=== PATIENT | female | born 1940 | race Caucasian/White ===

== ENCOUNTER 2018-02-05 12:21 | Outpatient (CLI) | payer MEDICARE, OTHER ==
--- NOTE | 2018-02-05 17:04 | MRI Report ---
EXAM: MRI LUMBAR SPINE WITHOUT CONTRAST EXAM DATE: 02/05/2018 01:38 PM. CLINICAL HISTORY: Lumbar spinal stenosis. Scoliosis. Chronic back pain. COMPARISON: None. TECHNIQUE: Multiplanar, multisequence T1-weighted and fluid-sensitive sequences of the lumbar spine f rom T12 to S1 without contrast. Other: None. FINDINGS: Spinal Cord: The conus terminates at L1-L2. The conus medullaris and cauda equina are unremarkable. Alignment: Moderate levoconvex scoliosis centered at the L2-L3 level. The Simms angle from T12 to L4 i s approximately 55 degrees in the supine position. There is right lateral listhesis at L1-L2 by appro ximately 11 mm. There is left lateral listhesis at L3-L4 by approximately 11 mm. There is left latera l listhesis at L4-L5 by approximately 9 mm. There is right lateral listhesis at T12-L1 by approximate ly 5 mm. Bone Marrow: Five did-zei-xiyjnwa lumbar vertebral bodies are assumed. No gross fractures or bone les ions. No bone marrow edema. Disk Levels/Facets: L5-S1: Left-sided degenerative endplate changes. Severe left-sided and moderate right-sided disk spac e narrowing. Small posterior central, left paracentral, and left foraminal disk protrusion/osteophyte complex. Severe left and mild right facet arthropathy. Moderate to severe left foraminal stenosis. L4-L5: Mild to moderate disk space narrowing. Small left foraminal disk protrusion. Moderate to sever e ligamentum flavum thickening. Severe facet arthropathy. Mild to moderate canal stenosis. Mild to mo derate right and moderate left foraminal stenoses. L3-L4: Right-sided degenerative endplate changes. Moderate to severe right-sided and mild left-sided disk space narrowing. Small posterior disk bulge. Small right lateral disk protrusion. Severe right a nd left facet arthropathy. Moderate to severe right and mild left foraminal stenoses. L2-L3: Right-sided degenerative endplate changes. Severe right-sided disk space narrowing. Small to m oderate-sized right lateral osteophytes. Moderate to severe ligamentum flavum thickening. Moderate to severe right facet arthropathy. Mild to moderate canal stenosis. Mild right subarticular zone stenos is. Moderate right foraminal stenosis. L1-L2: Severe right-sided and moderate left-sided disk space narrowing. Moderate to severe right face t arthropathy. Moderate right subarticular zone stenosis. Severe right foraminal stenosis. T12-L1: Moderate disk space narrowing. Mild to moderate right facet arthropathy. Mild right foraminal stenosis. T11-T12: Mild to moderate right and moderate left facet arthropathy. Moderate left facet joint effusi on. Mild canal stenosis. Moderate left foraminal stenosis. T10-T11: Moderate to severe left-sided disk space narrowing. Moderate to severe left facet arthropath y. Moderate to severe left foraminal stenosis. Musculature: Moderate fatty atrophy at the right posterior paraspinal muscles. Other: Incidentally, there is a 1.6 cm stone within the gallbladder. The endometrial thickness is [place] roximately 1.1 cm. IMPRESSION: 1. Moderate levoconvex scoliosis centered at the L2-L3 level. Right lateral listhesis at L1-L2 and T1 2-L1. Left lateral listhesis at L3-L4 and L4-L5. 2. Multilevel degenerative disk changes, osteophytosis, and facet arthropathy. There are varying degr ees of stenoses. Please see above for level by level details. 3. Incidental finding of thickened endometrium which may represent hyperplasia or neoplasia. Consider further evaluation with endometrial biopsy if warranted. 4. Incidental finding of a 1.6 cm gallstone. Comment: The following findings are so common in adults without low back pain that while we report th eir presence, they must be interpreted with caution and in the context of the clinical situation. (Re kayce Harrison et al, Spine 2001) Prevalence of findings in patients without low back pain: Disk degeneration (any evidence): 92% Disk desiccation/T2 signal loss: 83% Disk height loss: 56% Disk bulge: 64% Disk protrusion: 32% Annular tear/high intensity zone: 38% [facility] Referring Provider Line: [phone] SITE ID: [id number]
== END 2018-02-05 12:22 | disposition home or self-care (01) ==
LOC: DI 12:21
PROVIDERS: ATTEND Internal Medicine Rheumatology
DX: M51.26 Other intervertebral disc displacement, lumbar region (principal); M47.896 Other spondylosis, lumbar region; M51.36 Other intervertebral disc degeneration, lumbar region; M47.894 Other spondylosis, thoracic region; M43.16 Spondylolisthesis, lumbar region; M41.86 Other forms of scoliosis, lumbar region; M51.27 Other intervertebral disc displacement, lumbosacral region
CPT/HCPCS: 72148

== ENCOUNTER 2018-12-01 19:30 | Outpatient (CLI) | payer MEDICARE, OTHER | END 2018-12-01 19:31 | disposition home or self-care (01) | LOC: DI 19:30 | PROVIDERS: ATTEND Family Medicine | DX: Z53.9 Procedure and treatment not carried out, unspecified reason (principal) ==

== ENCOUNTER 2018-12-09 08:06 | Outpatient (CLI) | payer MEDICARE, OTHER ==
[2018-12-09 10:19] LABS: BASOPHILS % (AUTO) 0.2 %; EOSINOPHILS # (AUTO) 0.2 10^3/uL (0.0-0.7); EOSINOPHILS % (AUTO) 1.5 %; HGB - HEMOGLOBIN 14.8 g/dL (12.0-16.0); LYMPHOCYTES # (AUTO) 0.3 10^3/uL (1.5-3.5); LYMPHOCYTES % (AUTO) 2.4 %; MEAN CORPUSCULAR HEMOGLOBIN 33.2 pg (27.0-31.0); MEAN CORPUSCULAR HGB CONC 33.3 g/dL (32.0-36.0); MEAN CORPUSCULAR VOLUME 99.6 fL (81.0-99.0); MEAN PLATELET VOLUME 8.5 fL (7.9-10.8); MONOCYTES # (AUTO) 0.2 10^3/uL (0.0-1.0); MONOCYTES % (AUTO) 1.9 %; NEUTROPHILS # (AUTO) 12.1 10^3/uL (1.5-6.6); PLT - PLATELET COUNT 359 10^3/uL (130-450); RED BLOOD COUNT 4.46 10^6/uL (4.20-5.40); RED CELL DISTRIBUTION WIDTH 13.4 % (12.0-15.0); WHITE BLOOD COUNT 12.9 x10^3/uL (4.8-10.8)
[2018-12-09 10:51] LABS: ALBUMIN 3.6 g/dL (3.2-5.5); ALBUMIN/GLOBULIN RATIO 1.3 (1.0-2.2); ALKALINE PHOSPHATASE 54 IU/L (42-121); ALT ALANINE AMINOTRANSFERASE 29 IU/L (10-60); AST ASPARTATE AMINOTRANSFERASE 34 IU/L (10-42); BILIRUBIN,TOTAL 0.3 mg/dL (0.2-1.0); BUN - BLOOD UREA NITROGEN 16 mg/dL (6-20); CALCIUM 8.2 mg/dL (8.5-10.3); CARBON DIOXIDE - CO2 29 mmol/L (21-32); CHLORIDE 106 mmol/L (101-111); CHOL/HDL RATIO 2.4 (<4.4); CHOLESTEROL 143 mg/dL; CREATININE 0.6 mg/dL (0.4-1.0); GFR - MDRD 97 (>89); GLUCOSE 117 mg/dL (70-100); HDL CHOLESTEROL 60 mg/dL; LDL CHOLESTEROL,CALCULATED 71 mg/dL; LDL/HDL RATIO 1.2 (<4.4); SODIUM 142 mmol/L (135-145); TOTAL PROTEIN 6.3 g/dL (6.7-8.2); VLDL CHOLESTEROL 12 mg/dL
== END 2018-12-09 08:07 | disposition home or self-care (01) ==
LOC: LAB.F 08:06
PROVIDERS: ATTEND Physician Assistant
DX: M89.9 Disorder of bone, unspecified (principal); Z79.899 Other long term (current) drug therapy
CPT/HCPCS: 36415; 80053; 80061; 82306; 83721; 85025

== ENCOUNTER 2018-12-10 14:26 | Outpatient (CLI) | payer MEDICARE, OTHER ==
--- NOTE | 2018-12-10 16:27 | MRI Report ---
Reason: CONFUSION Procedure Date: 12/10/2018 Accession Number: [id number] / [id number] Procedure: MRI - Brain W/O CPT Code: FULL RESULT: EXAM: MRI BRAIN WITHOUT CONTRAST EXAM DATE: 12/10/2018 03:02 PM. CLINICAL HISTORY: 78-year-old female. CONFUSION. COMPARISON: None. TECHNIQUE: Multiplanar, multisequence T1-weighted and fluid-sensitive MR sequences of the brain were performed. Sequences optimized for routine evaluation. Other: None. IV Contrast: None. FINDINGS: Brain Volume: Normal for age. Parenchyma/Dura: No mass, acute infarct or hemorrhage. No white matter lesions identified. No parenchymal foci susceptibility artifact. Ventricles/Cisterns: No hydrocephalus. No abnormal extra-axial fluid collection or hemorrhage. Orbits: Status post bilateral lens replacement surgery. The visualized orbits are otherwise unremarkable. Sella Turcica: The pituitary gland, cavernous sinuses, suprasellar cistern and optic chiasm are unremarkable. IAC: Symmetric and unremarkable. Vasculature: Normal signal flow void is seen in the major arterial structures at the skull base. Sinuses: Moderate mucosal thickening right maxillary sinus. Mild mucosal thickening left maxillary sinus. The remaining paranasal sinuses are clear. The mastoid air cells are clear. Bones: No focal pathologic appearing marrow signal changes. 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 IMPRESSION: 1. No MRI evidence of acute intracranial abnormality. Specifically, no evidence of acute or subacute infarct, acute intracranial hemorrhage, mass, midline shift, or hydrocephalus. 2. Moderate mucosal thickening right maxillary sinus. Mild mucosal thickening left maxillary sinus. Correlate clinically for sinusitis. [facility]
--- NOTE | 2018-12-11 13:01 | Ultrasound Report ---
Reason: CONFUSION Procedure Date: 12/10/2018 Accession Number: [id number] / [id number] Procedure: US - Carotid Doppler Complete CPT Code: FULL RESULT: EXAM: BILATERAL CAROTID AND VERTEBRAL ARTERY DUPLEX DOPPLER ULTRASOUND: EXAM DATE: 12/10/2018 04:35 PM CLINICAL HISTORY: Confusion. COMPARISON: None. TECHNIQUE: Grayscale imaging, color Doppler, and duplex spectral Doppler were used to evaluate the carotid and vertebral arteries bilaterally. Static images were obtained. FINDINGS: No significant plaque is identified in the right or left common or internal carotid arteries. Normal antegrade flow is present in bilateral vertebral arteries. VELOCITIES (cm/sec): RIGHT: CCA mid: PSV 78 cm/sec CCA dist: PSV 72 cm/sec ICA prox: PSV 73 cm/sec, EDV 23 cm/sec ICA mid: PSV 137 cm/sec, EDV 42 cm/sec ICA dist: PSV 137 cm/sec, EDV 30 cm/sec ECA: PSV 56 cm/sec Vert: PSV 74 cm/sec ICA/CCA: 1.76 LEFT: CCA mid: PSV 85 cm/sec CCA dist: PSV 77 cm/sec ICA prox: PSV 69 cm/sec, EDV 23 cm/sec ICA mid: PSV 204 cm/sec, EDV 76 cm/sec ICA dist: PSV 69 cm/sec, EDV 14 cm/sec ECA: PSV 80 cm/sec Vert: PSV 99 cm/sec ICA/CCA: 2.40 ICA diameter stenosis: Right: <50% by velocity and <70% by NASCET criteria. Left: 50-69% by velocity and <70% by NASCET criteria. IMPRESSION: 1. No significant bilateral carotid artery plaquing. 2. In the right carotid artery there are no elevated carotid artery velocities to suggest hemodynamically significant stenosis. 3. In the left carotid artery there are no elevated carotid artery velocities to suggest hemodynamically significant stenosis. 4. Normal antegrade flow is present in bilateral vertebral arteries. General Recommendations: Stenosis =50% ICA - Follow-up ultrasound 6-12 months Stenosis <50% ICA - High Risk Patient with plaque - Follow-up ultrasound 1-2 years Normal Study but High Risk Patient - Follow-up ultrasound 3-5 years Management recommendations and diagnostic criteria are based on current IAC endorsed standards in Carotid Artery Stenosis: Grayscale and Doppler Ultrasound Diagnosis. Validated velocity measurements with angiographic measurements and velocity criteria are extrapolated from diameter data as defined by the Society of Radiologists in Ultrasound Consensus Conference Radiology 2003; 229;340-346. [facility]
== END 2018-12-10 14:27 | disposition home or self-care (01) ==
LOC: DI 14:26
PROVIDERS: ATTEND Family Medicine
DX: R41.0 Disorientation, unspecified (principal); J34.89 Other specified disorders of nose and nasal sinuses
CPT/HCPCS: 70551; 93880

== ENCOUNTER 2018-12-14 10:59 | Outpatient (CLI) | payer MEDICARE, OTHER ==
[2018-12-14 19:00] LABS: CREATININE 0.5 mg/dL (0.4-1.0)
[2018-12-14 19:32] LABS: CALCIUM 8.4 mg/dL (8.5-10.3)
== END 2018-12-14 23:59 | disposition home or self-care (01) ==
LOC: LAB.WCP 10:59
PROVIDERS: ATTEND Physician Assistant Medical
DX: E87.6 Hypokalemia (principal)
CPT/HCPCS: 36415; 80048

== ENCOUNTER → 2019-08-26 | Outpatient (CLI) | payer MEDICARE, OTHER ==
--- NOTE | 2019-08-26 16:55 | XRAY Report ---
Reason: SACRAL BACK PAIN Procedure Date: 08/26/2019 Accession Number: [id number] / [id number] Procedure: WCP - Sacrum/Coccyx CPT Code: FULL RESULT: EXAM: SACRUM AND COCCYX RADIOGRAPHY EXAM DATE: 08/26/2019 03:46 PM. HISTORY: Lumbosacral pain. COMPARISONS: None. TECHNIQUE: 2 views. FINDINGS: Alignment: Normal. The sacrum and coccyx are normally aligned. Bones: Partial evaluation of lower lumbar spine with marked levoconvex lumbar scoliosis. No focal bony abnormality. No evidence of sacral insufficiency fracture. Joints: Normal for age sacroiliac and hip joints. Soft Tissues: Unremarkable. IMPRESSION: 1. Severe levoconvex lumbar scoliosis. 2. Normal sacroiliac and hip joints. 3. No evidence of pelvic fracture. [facility]
== END ==
LOC: DI.WCP 08:00 → EDSTATUS 12:28
PROVIDERS: ATTEND Physician Assistant Medical
DX: M41.9 Scoliosis, unspecified (principal)
CPT/HCPCS: 72220

== ENCOUNTER 2020-01-04 09:22 | Outpatient (CLI) | payer MEDICARE, OTHER ==
[2020-01-05 20:35] VITALS: BP 178/71
--- NOTE | 2020-01-05 20:35 | SLEEP CARE CONSULTATION ---
Information from patient questionnaire entered by Yarelis Ochoa. I have reviewed and concur with the information entered by Yarelis Ochoa. This document represents the service I personally performed and the decisions made by me, Efren Lynch MD, [place]. History of Present Illness Reason for Visit: New patient Chief Complaint: reports: Insomnia, Unrefreshed sleep, Excessive daytime sleepiness, Fatigue Duration of Symptoms: 30 years at least Usual bedtime: 2200 Time it takes to fall asleep: 15 mins with sleep meds, hours without Snores at night: No (not that I know of) Observed to quit breathing while asleep: No Sleeps alone due to snoring: No Number of times waking at night: 2+ Reasons for waking at night: reports: Pain (sometimes), Bathroom Toss, Turn, or Twitch while sleeping: No Recalls having dreams: Yes Usually gets out of bed at: 0600 Feels refreshed in the morning: No Morning headache: Yes Sleepy or fatigued during the day: Yes Ever fallen asleep while driving: No Takes day naps: No Dreams during day naps: No Prior sleep studies: No Additional HPI information: I had the pleasure of seeing Ms. Goetz today regarding the possibility of her having a sleep disorder. As you know, she is a 79 year old lady who complains of insomnia for 30 years. She has been taking zolpidem 10 mg every night for at least 20 years. She also takes methadone 240 mg for pain. The patient tells me that she normally goes to bed around 10 pm, and it takes her approximately 15 minutes to fall asleep. She has been told that she snores loudly and irregularly at night. She has never been observed to stop breathing in her sleep. However, she sleeps alone (her 3 months ago). She can recall waking up on the average of 2+ times during the night. Most of the time she wakes up because of having to use the bathroom. She has never awakened occasionally because of her own snoring, choking, or having to gasp for air. There is not a lot of tossing and turning in her sleep. No somniloquy (sleep talking) or somnambulism (sleep walking). Generally she can recall having dreams. In the morning she usually gets up out of the bed around 6 a.m. not feeling refreshed nor rested. She usually has a morning headache. During the day she complains of feeling sleepy and fatigued. However, her score on [place] Sleepiness Scale is 0 out of 24. She has never fallen asleep while driving nor has had any accident due to sleepiness. She usually does not take naps during the day. Upon falling asleep during the day she denies having vivid dreams. She has never had sleep paralysis, experienced cataplexy or symptoms of restless leg syndrome. She denies having impaired concentration during the day. Subjective Initial [place] Sleepiness Scale score: 0 Past Medical History Past Medical History: reports: Hypertension, Arthritis, Fibromyalgia, Anxiety, Depression, GERD, Other (IBS, migrains, bone disorder, chronic fatigue syndrome,chronic itching on spinal stenosis,scoliosis, degenerative disc disease) Social History The patient's occupation is retired. Patient is and lives in [place]. Have you smoked in the past 12 months: No Cigarettes per day (20/pack): 20 Years of smokin (8-10 years) Quit date: 1975 Smoking Pack Years: 9.0 Alcohol use: No Caffeine use: No Allergies and Home Medications Drug allergies reviewed: Yes Home medication list reviewed: Yes Allergy and home medication list: Meds: Zoloft, Buspar, atenolol, methadone, Vicodin, Ritalin, methyline ER, Imitrex, zolpidem, Carafate, hydroxyzine Allergies: sulfa and epinephrine Review of Systems Weight loss over past 5 years: 25 Cardiovascular: reports: high blood pressure, leg or foot swelling Respiratory: denies: shortness of breath, wheeze, sputum production, chronic cough, other Gastrointestinal: reports: heartburn, difficulty swallowing, abdominal pain Urinary: reports: frequency Neurological: reports: headaches Psychiatric: reports: anxiety, depression Ear/Nose/Throat: reports: nasal congestion, sinus problems, dry mouth/throat, tonsillectomy, wisdom teeth removed Endocrine: reports: sluggishness, excessive thirst Musculoskeletal: reports: joint pain, neck pain, back pain, muscle pain or cramping, mobility problems Immunologic: reports: sneezing (runny nose), itching Physical Exam Vital signs obtained and entered by: Dr. Conner Blood Pressure: 178/71 Cuff size: regular Heart Rate: 70 O2 Saturation: 94 Height: 5 ft 1 in Weight: 96 lb Body Mass Index: 18.1 BMI Classification: Underweight Neck circumference: 13 Mood/affect: normal HEENT: No craniofacial malformation Nostrils: patent to airflow Turbinates: normal Septum: midline Mouth and throat: narrow oropharynx Soft palate: long Hard palate: normal Uvula: normal Uvula visualization: 50% Mallampati Class II Tongue: normal in size Tonsils: absent bilaterally Chin and jaw: normal size and position Neck: normal w/o lymphadenopathy or thyromegaly Heart: regular rate and rhythm Lungs: clear bilaterally Abdomen: soft, non-tender Extremities: no edema or clubbing Neurologic: intact, no focal deficits Impression and Plan IMPRESSION: 1. Possible central sleep apnea, from opiate pain medications. The patient is on high dose methadone, especially considering her small size. Respiratory depressant effect of the medication could cause central sleep apnea. Narrow oropharynx, on the other hand, could cause obstructive sleep apnea-hypopnea. I recommend proceeding to an in-laboratory polysomnography for further evaluation. I informed the patient of what the sleep studies involve and after some discussion, she agreed to proceed. 2. Insomnia, sleep aid dependency. The patient actually has very good sleep schedule and no insomnia but she has been taking Ambien for many decades and does not know what would happen if she does not take it. I advise her to consider weaning herself off the medication because most likely she does not need it. Although, she may want to awhile because her just three months ago. Plan: 1. Schedule an in-laboratory polysomnography. 2. Avoid long distance driving or when feeling sleepy. 3. Avoid alcohol, sedative and muscle relaxant around bedtime. 4. Attempt to lose weight. 5. Return in 1 to 2 weeks after the study to discuss results and initiate therapy I spent 100% of this visit face to face with the patient with greater than 50% of this was spent time counseling the patient and coordination of care.
== END 2020-01-04 09:23 | disposition home or self-care (01) ==
LOC: SC 09:22
PROVIDERS: ATTEND Internal Medicine Pulmonary Disease
DX: G47.00 Insomnia, unspecified (principal); G47.8 Other sleep disorders; G47.10 Hypersomnia, unspecified; R53.83 Other fatigue
CPT/HCPCS: 99203; G0463; 99212

== ENCOUNTER 2020-01-26 19:33 | Outpatient (CLI) | payer MEDICARE, OTHER | END 2020-01-26 19:34 | disposition home or self-care (01) | LOC: SC 19:33 | PROVIDERS: ATTEND Internal Medicine Pulmonary Disease | DX: G47.00 Insomnia, unspecified (principal); R53.83 Other fatigue; I10 Essential (primary) hypertension; F32.9 Major depressive disorder, single episode, unspecified; Z79.891 Long term (current) use of opiate analgesic | CPT/HCPCS: 95810 ==

== ENCOUNTER 2020-04-13 10:26 | Outpatient (CLI) | payer MEDICARE, OTHER ==
--- NOTE | 2020-04-13 10:08 | SLEEP CARE CONSULTATION ---
Information from patient questionnaire entered by Ligia Nunez. I have reviewed and concur with the information entered by Ligia Nunez. This document represents the service I personally performed and the decisions made by me, Barbara Sylvester, RN, MSN, [employer]. History of Present Illness Service Date and Time: 04/13/2020929 Initial [place] Sleepiness Scale score: 0 (in 2019) Additional HPI information: YOANA DENISE returns for telemed visit to discuss results of the recently performed polysomnography. I explained the pathophysiology behind obstructive sleep apnea. Patient does not have sleep apnea and was advised how weight gain could increase the risk of developing sleep apnea in the future. Patient has mild snoring. Snoring can be reduced by weight loss but patient at normal weight. Snoring can also be treated with an oral appliance from a dentist. Advised to check insurance coverage. In addition, an ENT evaluation can be do to see if other treatment is indicated. Patient not interested in any treatment at this time. Patient counseled not drink alcohol less than 4 hours before bedtime as it can increase snoring and apnea. I especially stressed not using alcohol as she uses Ambien to sleep and informed of risks of combining. She states she is aware. She states the Ambien assists her to sleep through the night that before was disrupted by back pain. She takes opiates for her pain and also was advised not to combine with alcohol or Ambien and patient stated she is aware. Patient was cautioned about risks of drowsy driving if fatigue or sleepiness symptoms. Patient denies drowsy driving but has not done any while sheltering in place due to Covid19 pandemic. Sleep Study - Results Polysomnography/Home Sleep Study results: The quality of the study is good. The patient had normal sleep efficiency. The sleep architecture was abnormal for sleep fragmentation and reduced amount of time or hypoxia (clarisse oxygen saturation of 88% and only 0.6% to the total sleep time was spent with oxygen saturation below 90%). The patient slept mostly supine (supine AHI = 1.8; non-supine = 2.19). Snore was light in intensity. There was no significant periodic leg movement of sleep. Cardiac rhythm was normal sinus rhythm without significant arrhythmia. No abnormal behavior (parasomnia) observed during the night. Physical Exam Height: 5 ft Weight: 98 lb (home weight - stable ) Body Mass Index: 19.1 BMI Classification: Healthy weight Impression and Plan 1.Snoring but no significant sleep disordered breathing. Patient advised that often weight loss will reduce snoring but patient at normal weight. I reviewed other treatment options such as an oral appliance and ENT consult. However, her mild snoring is not disruptive to her sleep that she is aware of so it does not need to be treated at this time. 2.Insomnia, that patient feels is due to her back pain and is treated by her rheumotologist. She feels it is managed as best as can be with current m edication regime. She was cautioned of risk of respiratory depression and by combining Ambien, opiates or alcohol. She states she aware and does not combine. She has been on current medications for years. If further insomnia concerns, she is advised to contact this office for follow up with sleep diaries for further evaluation. 1. Follow up as needed. Visit Type: Telehealth Phone (to reduce risk of Covid 19 exposure) Patient Location: assisted living Location of Provider: Home Patient agrees and consents to this telehealth visit type: Yes Patient agrees to have their insurance billed: Yes Time Spent with Patient (minutes): 10 Provider Statement: I spent 100% of the Telehealth Phone Call with the patient with greater than 50% spent counseling the patient and coordination of care.
== END 2020-04-13 10:27 | disposition home or self-care (01) ==
LOC: SC 10:26
PROVIDERS: ATTEND Nurse Practitioner Family
DX: R06.83 Snoring (principal); G47.00 Insomnia, unspecified

== ENCOUNTER 2020-09-13 17:39 | Outpatient (CLI) | payer MEDICARE, OTHER ==
--- NOTE | 2020-09-13 18:42 | XRAY Report ---
PROCEDURE: Chest 2 View X-Ray INDICATIONS: COUGH TECHNIQUE: 2 view(s) of the chest. COMPARISON: None. FINDINGS: Surgical changes and devices: Surgical clips are noted in right side of abdomen and epigastric region suggest clinical correlation.. Lungs and pleura: No pleural effusions or pneumothorax. Lungs are clear. Mediastinum: Mediastinal contours are normal. Heart size is normal. Bones and chest wall: No suspicious bony abnormalities. Soft tissues appear unremarkable. S-shaped scoliosis of thoracolumbar spine is seen. IMPRESSION: No acute cardiopulmonary pathology. Scoliosis of spine. Reviewed by: Chris Contreras MD on 09/13/2020 5:40 PM [facility] Approved by: Chris Contreras MD on 09/13/2020 5:40 PM [facility] Station ID: [id number]
== END 2020-09-13 17:40 | disposition home or self-care (01) ==
LOC: DI 17:39
PROVIDERS: ATTEND Family Medicine
DX: R05 Cough (principal)
CPT/HCPCS: 71046

== ENCOUNTER 2022-06-25 15:14 | Observation (INO) | payer MEDICARE, OTHER ==
--- NOTE | 2022-06-25 15:23 | ED Physician Documentation ---
PD HPI FOCAL NEURO - Stated complaint Stated Complaint: STOKE SYMPTOMS - History obtained from History obtained from: Patient - Additional information Additional information: She woke up yesterday morning around 0600, had gone to bed the night before on Friday around 9 PM. When she woke up yesterday morning she had slurred speech and right facial weakness. She did not think much of it and ended up going to the dentist yesterday for some dental work. Symptoms were persistent today so she called 911 for evaluation. She denies headache or chest pain. No heart or lung problems. Review of Systems Ten Systems: 10 systems reviewed and negative Cardiac: reports: Reviewed and negative Respiratory: reports: Reviewed and negative PD PAST MEDICAL HISTORY - Past Medical History Psych: Depression, Anxiety Musculoskeletal: Osteoarthritis - Present Medications Home Medications: Ambulatory Orders Medication Instructions Recorded Confirmed Cyclobenzaprine [Flexeril] 10 mg PO TID PRN 06/30/20 06/30/20 Gabapentin 100 mg PO TID 06/30/20 06/30/20 Methadone HCl 240 mg PO DAILY 06/30/20 06/30/20 Methylphenidate HCl [Methylin] 20 mg PO DAILY 06/30/20 06/30/20 Methylphenidate [Ritalin] 5 mg PO DAILY 06/30/20 06/30/20 SUMAtriptan [Imitrex] 25 mg PO ONCE PRN 06/30/20 06/30/20 Salsalate [Disalcid] 500 mg PO DAILY PRN 06/30/20 06/30/20 Sertraline HCl [Zoloft] 200 mg PO DAILY 06/30/20 06/30/20 Sucralfate [Carafate] 1 gm PO DAILY 06/30/20 06/30/20 Zolpidem Tartrate [Ambien] 10 mg PO QPM 06/30/20 06/30/20 atenoloL [Atenolol] 100 mg PO DAILY 06/30/20 06/30/20 busPIRone [Buspar] 25 mg PO DAILY 06/30/20 06/30/20 predniSONE [Prednisone] 5 mg PO DAILY 06/30/20 06/30/20 - Allergies Allergies/Adverse Reactions: Allergies Allergy/AdvReac Type Severity Reaction Status Date / Time Sulfa (Sulfonamide Allergy Hives Verified 06/25/22 15:20 Antibiotics) - Social History Does the pt smoke?: No Does the pt drink ETOH?: No PD ED PE NORMAL - Vitals Vital signs reviewed: Yes - General General: Alert and oriented X 3, Other (She is small stature and quite thin with a frequent bronchitic cough that she says is from her allergies.) - HEENT HEENT: PERRL, EOMI, Other (Left-sided tongue deviation and mild right facial droop) - Neck Neck: Supple, no meningeal sign, No bony TTP - Cardiac Cardiac: RRR, No murmur - Respiratory Respiratory: No respiratory distress, Other (Frequent coughing and diminished at the bases) - Abdomen Abdomen: Soft, Non tender - Back Back: No CVA TTP, No spinal TTP - Derm Derm: Normal color, Warm and dry - Extremities Extremities: No edema, No calf tenderness / cord - Neuro Neuro: Alert and oriented X 3, No motor deficit, No sensory deficit, Normal speech Eye Opening: Spontaneous Motor: Obeys Commands Verbal: Oriented GCS Score: 15 NIHSS - Time Time: 15:20 - Level of Consciousness Level of consciousness: (0) Alert, Keenly responsive LOC Questions: (0) Answers both Q's correct LOC Commands: (0) Performs both correctly - Gaze Best Gaze: (0) Normal - Visual Visual: (0) No loss - Facial Palsy Facial Palsy: (1) Minor paralysis - Motor Arms (both separate) Motor Arm (right): (0) No drift Motor Arm (left): (0) No drift - Motor Legs (both separate) Motor Leg (right): (0) No drift (I was unable to get her to lift either leg off the bed due to arthritic pain related to hip osteoarthritis but strength in the ankles is excellent and symmetric) Motor Leg (left): (0) No drift - Limb Ataxia Limb Ataxia: (0) Absent - Sensory Sensory: (0) Normal - Best Language Best Language: (0) No aphasia - Dysarthria Dysarthria: (0) Normal - Extinction and Inattention (formally neg Extinction and inattention: (0) No abnormality - Total Score/Results Total Score/Result: 1 Results - Vitals Vitals: Vital Signs - 24 hr 06/25/22 06/25/22 15:20 15:23 Temperature 36.5 C 36.5 C Heart Rate 84 84 Respiratory 16 16 Rate Blood Pressure 140/70 H 140/70 H O2 Saturation 93 93 Oxygen O2 Source Room air - Labs Labs: Laboratory Tests 06/25/22 06/25/22 06/25/22 15:29 15:29 15:29 WBC 15.0 H RBC 3.81 L Hgb 12.5 Hct 38.7 MCV 101.6 H MCH 32.8 H MCHC 32.3 RDW 13.9 Plt Count 320 MPV 9.8 Neut # (Auto) 13.3 H Lymph # (Auto) 0.8 L [place] # (Auto) 0.7 Eos # (Auto) 0.0 Baso # (Auto) 0.0 Absolute Nucleated RBC 0.00 Nucleated RBC % 0.0 PT 13.1 H INR 1.2 Sodium 137 Potassium 4.2 Chloride 103 Carbon Dioxide 26 Anion Gap 8.0 BUN 15 Creatinine 0.4 Estimated GFR (MDRD) 154 Glucose 146 H Calcium 8.1 L Total Bilirubin 0.3 AST 29 ALT 21 Alkaline Phosphatase 114 Total Protein 6.0 L Albumin 2.7 L Globulin 3.3 Albumin/Globulin Ratio 0.8 L PD MEDICAL DECISION MAKING - ED course ED course: 82-year-old woman presents with stroke symptoms. She is well out of the window for tPA consideration. CTA of the head and neck show no evidence of stroke or occlusion. Note that she has significant sinus disease. I discussed this with her, it is not acute. She was administered aspirin and I spoke with Dr. Branch for admission at 5 PM. Departure - Departure Disposition: ED Place in Observation Clinical Impression: Stroke-like symptoms Condition: Stable Discharge Date/Time: 06/25/22 18:04
[2022-06-25 15:40] LABS: BASOPHILS % (AUTO) 0.3 %; EOSINOPHILS % (AUTO) 0.2 %; HCT - HEMATOCRIT 38.7 % (37.0-47.0); HGB - HEMOGLOBIN 12.5 g/dL (12.0-16.0); LYMPHOCYTES # (AUTO) 0.8 10^3/uL (1.5-3.5); LYMPHOCYTES % (AUTO) 5.3 %; MEAN CORPUSCULAR HEMOGLOBIN 32.8 pg (27.0-31.0); MEAN CORPUSCULAR HGB CONC 32.3 g/dL (32.0-36.0); MEAN CORPUSCULAR VOLUME 101.6 fL (81.0-99.0); MEAN PLATELET VOLUME 9.8 fL (7.9-10.8); MONOCYTES # (AUTO) 0.7 10^3/uL (0.0-1.0); MONOCYTES % (AUTO) 4.7 %; NEUTROPHILS # (AUTO) 13.3 10^3/uL (1.5-6.6); PLT - PLATELET COUNT 320 10^3/uL (130-450); RED BLOOD COUNT 3.81 10^6/uL (4.20-5.40); RED CELL DISTRIBUTION WIDTH 13.9 % (12.0-15.0)
[2022-06-25 15:48] LABS: ALBUMIN 2.7 g/dL (3.2-5.5); ALBUMIN/GLOBULIN RATIO 0.8 (1.0-2.2); BILIRUBIN,TOTAL 0.3 mg/dL (0.2-1.0); CALCIUM 8.1 mg/dL (8.5-10.3); CREATININE 0.4 mg/dL (0.4-1.0); POTASSIUM 4.2 mmol/L (3.5-5.0)
[2022-06-25 16:08] LABS: INR 1.2 (0.8-1.2); PT - PROTHROMBIN TIME 13.1 secs (9.9-12.6)
--- NOTE | 2022-06-25 16:45 | CT Report ---
PROCEDURE: ANGIO NECK W INDICATIONS: cva sx CONTRAST: IV CONTRAST: Optiray 320 ml: 80 PO CONTRAST: *NO PO CONTRAST TECHNIQUE: After the administration of intravenous contrast, 1.5 mm axial sections acquired from the aortic arch to the [place] of [place]. Coronal 3-D maximum intensity projection (MIP) and/or volume rendering ref ormats were then performed. For radiation dose reduction, the following was used: automated exposur e control, adjustment of mA and/or kV according to patient size. COMPARISON: None. FINDINGS: Standard three-vessel aortic arch anatomy. Mild atherosclerotic calcifications of the aortic arch wit hout extension into the arch branch vessels. The bilateral common carotid arteries and carotid bifurc ations are widely patent despite some mild atherosclerotic calcification in the right carotid bifurca tion. Origins of the extracranial internal carotid arteries are widely patent. There is no hemodynami c significant stenosis of the extracranial internal carotid arteries. Codominant and widely patent vertebral arteries throughout the neck. Fluid levels and mucosal thickening in the bilateral maxillary sinuses, left sphenoid sinus, and nume brian anterior ethmoid air cells. Complete opacification of the left frontal sinus. Overall findings c onsistent with acute on chronic pansinusitis. No acute or suspicious osseous lesion. Degenerative changes in the cervical spine. Spinal stimulator leads partially visualized. Mild emphysematous changes suspected (primary parenchymal evaluation is l imited by respiratory motion artifact). IMPRESSION: Widely patent cervical arterial vasculature. The estimate of stenosis included in the report of the imaging study was calculated using the NASCET method Reviewed by: Cedrick Hunter MD on 06/25/2022 4:43 PM PDT Approved by: Cedrick Hunter MD on 06/25/2022 4:43 PM PDT Station ID: [id number]
--- NOTE | 2022-06-25 16:46 | CT Report ---
PROCEDURE: ANGIO HEAD W/WO INDICATIONS: cva sx CONTRAST: IV CONTRAST: Optiray 320 ml: 80 PO CONTRAST: *NO PO CONTRAST TECHNIQUE: Precontrast 4.5 mm thick angled axial sections acquired from the foramen magnum to the vertex. Afte r the administration of intravenous contrast, 1 mm thick sections acquired through the [place] of [place] is. Postcontrast 4.5 mm thick sections then re-acquired from the foramen magnum to the vertex. 3-di mensional udpjnen-pafkmwmwo-btqlgbpfle (MIP) and/or volume rendering reformats were acquired of the c entral intracranial vasculature. For radiation dose reduction, the following was used: automated ex posure control, adjustment of mA and/or kV according to patient size. COMPARISON: None. FINDINGS: Image quality: Excellent. Anterior circulation: Intracranial portions of the internal carotid arteries are widely patent. Anter ior and middle cerebral arteries opacify normally with no evidence of stenosis. Posterior circulation: V4 segments, basilar artery, and posterior cerebral arteries are all widely pa tent. Cerebellar arteries opacify normally. CSF spaces: Ventricles are normal in size and shape. Basal cisterns are patent. No extra-axial flu id collections. Brain: Mild global cerebral volume loss. No midline shift. No intracranial bleeds or masses. [place]- white matter interface appears intact. Skull and face: Calvarium and facial bones appear intact, without suspicious lesions. Sinuses: Extensive paranasal sinus inflammatory changes consistent with acute or chronic pansinusitis . IMPRESSION: No mechanically significant stenosis or occlusion of the major intracranial arterial circulation. No acute intracranial finding. Mild global cerebral volume loss. Findings of acute or chronic pansinusitis. Reviewed by: Cedrick Hunter MD on 06/25/2022 4:45 PM PDT Approved by: Cedrick Hunter MD on 06/25/2022 4:45 PM PDT Station ID: [id number]
[2022-06-25] MEDS ORDERED: ASPIRIN CHEW 81 MG TABLET PO STA (17:02)
[2022-06-25] MEDS ORDERED: ONDANSETRON ODT 4 MG TABLET TL PRN (17:08)
[2022-06-25] MEDS ORDERED: SODIUM CHLORIDE FLUSH 0.9% 10 ML SYRINGE IVP PRN (17:08)
[2022-06-25] MEDS ORDERED: ACETAMINOPHEN 325 MG TABLET PO PRN (17:08)
[2022-06-25 18:05] LABS: CORONAVIRUS 229E-RESP PCR NOT DETECTED; CORONAVIRUS HKU1-RESP PCR NOT DETECTED; CORONAVIRUS NL63-RESP PCR NOT DETECTED; CORONAVIRUS OC43-RESP PCR NOT DETECTED; SARS-CoV-2 -RESP PCR PANEL NOT DETECTED
[2022-06-25 18:06] LABS: B. PARAPERTUSSIS- RESP PCR PAN NOT DETECTED; B. PERTUSSIS- RESP PCR PANEL NOT DETECTED; C. PNEUMONIAE- RESP PCR PANEL NOT DETECTED; HUMAN METAPNEUMOVIRUS NOT DETECTED; INFLUENZA A- RESP PCR PANEL NOT DETECTED; INFLUENZA B - RESP PCR PANEL NOT DETECTED; M. PNEUMONIAE- RESP PCR PANEL NOT DETECTED; PARAINFLUENZA VIRUS 1 NOT DETECTED; PARAINFLUENZA VIRUS 2 NOT DETECTED; PARAINFLUENZA VIRUS 3 NOT DETECTED; PARAINFLUENZA VIRUS 4 NOT DETECTED; RHINOVIRUS/ENTEROVIRUS NOT DETECTED; RSV- RESP PCR PANEL NOT DETECTED
[2022-06-25] MEDS ORDERED: ZOLPIDEM 5 MG TABLET PO PRN (20:07)
[2022-06-25] MEDS ORDERED: ATORVASTATIN 40 MG TABLET PO SCH (21:00)
--- NOTE | 2022-06-25 22:31 | HISTORY & PHYSICAL EXAMINATION ---
Chief Complaint - Chief Complaint Chief Complaint: facial droop History of Present Illness - Admitted From Admitted From:: home via EMS - History Obtained From Records Reviewed: [facility] History obtained from: patient Exam Limitations: sleepy - History of Present Illness HPI Comment/Other: This unfortunate female who has risk factors for stroke of age, hypertension that woke up Friday morning, June 24, with right-sided deficits. She did not feel that bad, denied any headache, loss of vision. Went to see a dentist that day. Today, since his symptoms did not resolve, she was brought in by ambulance. Temperature is 36.5. Heart rate 84. Blood pressure 140/70. Respirations 16. 93% on room air. In the emergency room she was alert, oriented, answering questions correctly. Performing commands correctly. She w as unable to lift either leg off the bed due to arthritic pain from her hips. She had a facial droop. No aphasia. She was out of the window for tPA consideration. CTA of the head and neck showed no evidence of stroke or occlusion. She was given aspirin. We have been asked to place the patient in observation for complete med of a stroke work-up. 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 No history of high blood pressure stroke cancer that she is aware of in her family Living arrangement: At home Living Situation: With spouse/s.o. Social History Notes: 1 ppd of cigarettes for 8 to 10 years. Stopped smoking in 1975. No history of alcohol abuse. No history of recreational substance abuse. . Lives in [place]. - Substance History Use: Uses substance without health or social issues: NONE Meds/Allgy - Home Medications Home Medications: Ambulatory Orders Medication Instructions Recorded Confirmed Cyclobenzaprine [Flexeril] 10 mg PO TID PRN 06/30/20 06/30/20 Gabapentin 100 mg PO TID 06/30/20 06/30/20 Methadone HCl 240 mg PO DAILY 06/30/20 06/30/20 Methylphenidate HCl [Methylin] 20 mg PO DAILY 06/30/20 06/30/20 Methylphenidate [Ritalin] 5 mg PO DAILY 06/30/20 06/30/20 SUMAtriptan [Imitrex] 25 mg PO ONCE PRN 06/30/20 06/30/20 Salsalate [Disalcid] 500 mg PO DAILY PRN 06/30/20 06/30/20 Sertraline HCl [Zoloft] 200 mg PO DAILY 06/30/20 06/30/20 Sucralfate [Carafate] 1 gm PO DAILY 06/30/20 06/30/20 Zolpidem Tartrate [Ambien] 10 mg PO QPM 06/30/20 06/30/20 atenoloL [Atenolol] 100 mg PO DAILY 06/30/20 06/30/20 busPIRone [Buspar] 25 mg PO DAILY 06/30/20 06/30/20 predniSONE [Prednisone] 5 mg PO DAILY 06/30/20 06/30/20 - Allergies Allergies/Adverse Reactions: Allergies Allergy/AdvReac Type Severity Reaction Status Date / Time Sulfa (Sulfonamide Allergy Hives Verified 06/25/22 15:20 Antibiotics) Review of Systems - Constitutional Constitutional: reports: Fatigue, Weakness - Eyes Eyes: reports: Vision loss. denies: Pain, Irritation, Amaurosis, Blurred vision - Ears, Nose & Throat Ears, Nose & Throat: reports: Nasal discharge (and sneezing), Nasal congestion (chronic for years), Postnasal drainage, Sore throat (because of dry mouth). denies: Ear pain, Hearing loss, Hearing aids, Tinnitus, Nasal pain - Cardiovascular Cariovascular: reports: Edema, Decr. exercise tolerance. denies: Irregular heart rate, Palpitations, Chest pain, Lightheadedness, Syncope - Respiratory Respiratory: reports: Snoring. denies: Cough, Sputum production, Wheezing - Gastrointestinal Gastrointestinal: reports: Abdominal pain, Constipation, Diarrhea, Reflux/heartburn, Other (occasionally food gets stuck in her throat. This is been going on for years) - Genitourinary Genitourinary: reports: Frequency, Urgency. denies: Dysuria, Hematuria, Incontinence, Flank pain, Nocturia - Musculoskeletal Musculoskeletal: reports: Muscle pain, Back pain, Muscle aches, Stiffness, Joint pain, Joint swelling, Other (sociolosis, spinal stenosis, degenerative disc) - Integumentary Integumentary: denies: Rash, Pruritis, Lesions, Dryness - Neurological Neurological: reports: Headache. denies: General weakness, Focal weakness, Memory problems (but foggy thinker sometimes) - Psychiatric Psychiatric: reports: Depression, Anxiety. denies: Suicidal, Delusions, Hallucinations - Endocrine Endocrine: reports: Polydypsia (always thirsty bc of dry mouth), Intolerance to cold. denies: Polyuria, Polyphagia - Hematologic/Lymphatic Hematologic/Lymphatic: denies: Anemia, Bruising, Blood clots Exam - Vital Signs Reviewed Vital Signs: Yes Vital Signs: Vital Signs x48h Temp Pulse Pulse Resp BP BP Pulse Ox 06/25/22 20:58 20 129/48 L 97 06/25/22 18:21 37.6 C 72 20 101/52 L 94 06/25/22 17:23 36.5 C 70 16 105/85 H 94 06/25/22 15:23 36.5 C 84 16 140/70 H 93 06/25/22 15:20 36.5 C 84 16 140/70 H 93 - Physical Exam General Appearance: positive: No acute distress, Alert Eyes Bilateral: positive: PERRL, EOMI ENT: positive: No signs of dehydration Neck: positive: No JVD. negative: Stiff neck Respiratory: positive: No respiratory distress. negative: Wheezes, Rales, Rhonchi Cardiovascular: positive: Regular rate & rhythm. negative: Gallop/S4, Friction rub Peripheral Pulses: positive: 1+ Abdomen: positive: Non-tender, No organomegaly, Nml bowel sounds, No distention Skin: positive: Warm, Dry Extremities: positive: Full ROM, No pedal edema Neurologic/Psychiatric: positive: Oriented x3, Facial droop. negative: CN's nml (2-12), Motor nml Conclusion/Plan - Problem List (1) Stroke-like symptoms Conclusion/Plan: Patient will be placed in observation to complete work-up for possible stroke. Right now there are no focal deficits and it mainly appears to be a unilateral facial droop. Possible Mendes's palsy. CT of the head is negative. She has been given aspirin. Will be given a statin. Will check MRI, telemetry, echocar diogram. Her blood pressure will be observed overnight. Permissive hypertension to systolic of 180 will be allowed. (2) Chronic pain Conclusion/Plan: Current medication list has her on BuSpar, Flexeril, gabapentin, methadone. Methadone is 240 mg daily. Will need to verify in outpatient clinic with her doses are to give her tomorrow morning. Qualifiers: Chronic pain type: chronic pain syndrome Qualified Code(s): G89.4 - Chronic pain syndrome - Lab Results Lab results reviewed: Yes Fish Bones: 06/25/22 15:29 06/25/22 15:29 - Diagnostic Imaging Results Diagnostic Imaging Results: positive: Final report reviewed Diagnostic Imaging Results Comments: Her internal carotid arteries are widely patent. Anterior middle cerebral arteries opacify normally. Posterior circulation is also open. She has mild global cerebral volume loss and no midline shift. [place]-white matter interface appears intact. No suspicious lesions. She has extensive paranasal sinus inf lammatory changes consistent with acute or chronic pansinusitis. - EKG Results EKG Interpreted Independently: No Core Measures - Anticipated LOS I expect patient to be DC'd or transferred within 96 hours.: Yes - DVT/VTE - Prophylaxis VTE/DVT Device ordered at admit?: Yes - Stroke - Rehab Assessment Rehab services assessment to be ordered?: Yes
[2022-06-25] MEDS: SODIUM CHLORIDE FLUSH 0.9% 10 ML SYRINGE IVP SCH (23:57)
[2022-06-26 05:14] LABS: CHOL/HDL RATIO 2.3 (<4.4); CHOLESTEROL 90 mg/dL; HDL CHOLESTEROL 40 mg/dL; LDL CHOLESTEROL,CALCULATED 42 mg/dL; LDL/HDL RATIO 1.1 (<4.4); TRIGLYCERIDES 42 mg/dL; VLDL CHOLESTEROL 8 mg/dL
[2022-06-26 07:38] LABS: BASOPHILS % (AUTO) 0.3 %; EOSINOPHILS # (AUTO) 0.1 10^3/uL (0.0-0.7); EOSINOPHILS % (AUTO) 0.7 %; HCT - HEMATOCRIT 36.8 % (37.0-47.0); HGB - HEMOGLOBIN 12.3 g/dL (12.0-16.0); LYMPHOCYTES # (AUTO) 0.9 10^3/uL (1.5-3.5); LYMPHOCYTES % (AUTO) 6.1 %; MEAN CORPUSCULAR HEMOGLOBIN 33.2 pg (27.0-31.0); MEAN CORPUSCULAR HGB CONC 33.4 g/dL (32.0-36.0); MEAN CORPUSCULAR VOLUME 99.5 fL (81.0-99.0); MEAN PLATELET VOLUME 9.6 fL (7.9-10.8); MONOCYTES # (AUTO) 0.7 10^3/uL (0.0-1.0); MONOCYTES % (AUTO) 4.9 %; NEUTROPHILS % (AUTO) 87.7 %; PLT - PLATELET COUNT 295 10^3/uL (130-450); RED CELL DISTRIBUTION WIDTH 13.7 % (12.0-15.0); WHITE BLOOD COUNT 14.8 x10^3/uL (4.8-10.8)
[2022-06-26 07:48] LABS: CALCIUM 7.9 mg/dL (8.5-10.3); CREATININE 0.3 mg/dL (0.4-1.0); POTASSIUM 4.1 mmol/L (3.5-5.0)
[2022-06-26] MEDS: SODIUM CHLORIDE FLUSH 0.9% 10 ML SYRINGE IVP SCH (08:39)
[2022-06-26 08:44] LABS: ESTIMATED AVERAGE GLUCOSE 117 mg/dL (70-100); HEMOGLOBIN A1c% 5.7 % (4.27-6.07)
[2022-06-26] MEDS ORDERED: ENOXAPARIN 40 MG/0.4 ML SYRINGE SUBQ SCH (09:00)
[2022-06-26] MEDS ORDERED: ASPIRIN CHEW 81 MG TABLET PO SCH (09:00)
[2022-06-26] MEDS ORDERED: CLOPIDOGREL 300 MG TABLET PO ONE (09:09)
[2022-06-26] MEDS: BACLOFEN 10 MG TABLET PO SCH ×2 (09:40→14:03)
[2022-06-26] MEDS: METHADONE 5 MG TABLET PO SCH ×2 (09:40→14:02)
[2022-06-26] MEDS: HYDROcod/ACETAM 7.5 MG/325 MG TABLET PO PRN ×2 (09:40→14:02)
--- NOTE | 2022-06-26 11:14 | Discharge Plan ---
Discharge Plan Problem Reviewed?: Yes Disposition: 06 Home Health Service Condition: Stable Diet: Low Sodium Assistance Devices: [facility] Concerns: You were admitted to the hospital because of a possible stroke given you had some right-sided weakness. We did an MRI of your brain which showed no evidence of stroke. It appears she still may have some slight weakness in this right upper extremity but this is not due to stroke. If this persists on an outpatient basis then an MRI of your spine can be considered. On the MRI and the CT of your head he did have quite significant amount of sinus blockage especially on the left side. Please continue take the steroid nasal spray called Flonase. Please follow-up with your ENT physician and they can review the images to see if further treatment would be necessary. Plan of Treatment: There were no changes made to your medications. You may continue with the steroid nasal spray called Flonase for the sinus congestion. You may also use saline rinses as needed. Please follow-up with your ENT physician. Assessment: Patient and family expressed understanding of the treatment plan. Additional Instructions or Follow Up instructions: Please follow-up with your primary care physician in 1 to 2 weeks. Please follow-up with your ENT physician as scheduled. A referral was made to home health for physical therapy. Please return to the emergency department if you develop any weakness or concern for a stroke. Follow-Up Care: Home Health - PT No Smoking: If you smoke, Please STOP! Call for help. Follow-up with: Claritza Logan ARNP [Primary Care Provider] -
--- NOTE | 2022-06-26 11:14 | DISCHARGE SUMMARY ---
"Discharge Summary Admit Date: 06/25/22 Discharge Date: 06/26/22 Discharging Provider: Parminder Branch Primary Care Provider: Claritza Logan Code Status: Attempt Resuscitation Condition at Discharge: Stable Discharge Disposition: Home Health Service - DIAGNOSES Admission Diagnoses: Strokelike symptoms Chronic pain Discharge Diagnoses with Status of Each Condition: Strokelike symptoms - improved. Chronic pain - stable. Osteoarthritis - stable. Hypertension - stable. - HPI History of Present Illness: H&P per Dr. Mcnair: This unfortunate female who has risk factors for stroke of age, hypertension that woke up Friday morning, June 24, with right-sided deficits. She did not feel that bad, denied any headache, loss of vision. Went to see a dentist that day. Today, since his symptoms did not resolve, she was brought in by ambulance. Temperature is 36.5. Heart rate 84. Blood pressure 140/70. Respirations 16. 93% on room air. In the emergency room she was alert, oriented, answering questions correctly. Performing commands correctly. She was unable to lift either leg off the bed due to arthritic pain from her hips. She had a facial droop. No aphasia. She was out of the window for tPA consideration. CTA of the head and neck showed no evidence of stroke or occlusion. She was given aspirin. We have been asked to place the patient in observation for complete med of a stroke work-up. - CONSULTS | PROCEDURES Procedures: Preliminary echocardiogram report revealed a preserved ejection fraction without any significant valvular disease. - HOSPITAL COURSE Hospital Course: The patient was placed in observation for strokelike symptoms. She appeared to have very mild right upper extremity deficit and the concern was for potential stroke. She was started on aspirin, Plavix, Lipitor. She underwent echocardiogram which showed a preserved ejection fraction without significant valvular disease. She underwent a brain MRI which showed no evidence of stroke but did reveal prominent sinus disease predominantly in the left maxillary sinus. She was seen by PT and home health was recommended. Given the MRI showed no stroke, aspirin, Plavix, Lipitor were discontinued. She still felt slightly weak in the right upper extremity although on exam this was not really noticeable. We discussed if this persists an outpatient MRI of the cervical spine can be considered. We discussed the CT of the neck showed degenerative joint disease. We also discussed following up with ENT on outpati ent basis given the sinus disease and that she can continue with the fluticasone spray and can trial saline rinse as needed. - ALLERGIES Allergies/Adverse Reactions: Allergies Allergy/AdvReac Type Severity Reaction Status Date / Time Sulfa (Sulfonamide Allergy Hives Verified 06/25/22 15:20 Antibiotics) - MEDICATIONS Home Medications: Ambulatory Orders Medication Instructions Recorded Confirmed Cyclobenzaprine [Flexeril] 10 mg PO TID PRN 06/30/20 06/30/20 Gabapentin 200 mg PO BID 06/30/20 06/26/22 Methadone HCl 240 mg PO DAILY 06/30/20 06/30/20 Methylphenidate HCl [Methylin] 20 mg PO DAILY 06/30/20 06/30/20 Methylphenidate [Ritalin] 5 mg PO DAILY 06/30/20 06/30/20 SUMAtriptan [Imitrex] 25 mg PO ONCE PRN 06/30/20 06/30/20 Salsalate [Disalcid] 500 mg PO DAILY PRN 06/30/20 06/30/20 Sertraline HCl [Zoloft] 200 mg PO DAILY 06/30/20 06/26/22 Sucralfate [Carafate] 1 gm PO DAILY 06/30/20 06/30/20 Zolpidem Tartrate [Ambien] 10 mg PO QPM PRN MDD 1 06/30/20 06/26/22 atenoloL [Atenolol] 100 mg PO DAILY 06/30/20 06/26/22 busPIRone [Buspar] 25 mg PO UD 06/30/20 06/26/22 predniSONE [Prednisone] 5 mg PO DAILY 06/30/20 06/30/20 Baclofen [Lioresal] 10 mg PO UD PRN MDD 5 06/26/22 06/26/22 Hydrocodone/Acetaminophen 1 tab PO Q4H PRN 06/26/22 06/26/22 [Hydrocodone-Acetamin 7.5-300] Losartan [Cozaar] 50 mg PO DAILY 06/26/22 06/26/22 Methadone [Methadone Hcl] 5 mg PO TID 06/26/22 06/26/22 - PHYSICAL EXAM AT DISCHARGE General Appearance: positive: No acute distress, Alert Eyes Bilateral: positive: Normal inspection, Conjunctivae nml ENT: positive: ENT inspection nml Neck: positive: Nml inspection Respiratory: positive: No respiratory distress. negative: Wheezes, Rales Cardiovascular: positive: Regular rate & rhythm, No murmur. negative: Tachycardia Abdomen: positive: Non-tender, No distention. negative: Tenderness Skin: positive: Warm, Dry Extremities: positive: No pedal edema Neurologic/Psychiatric: positive: Sensation nml, Other (She had 5 out of 5 motor strength in all 4 extremities. The right upper extremity may have been slightly decreased compared to left although this was not consistent throughout the examination. Lower extremity examination was limited due to arthritic pain.). negative: Disoriented to person, Disoriented to place, Disoriented to time, Facial droop, Slurred/abnml speech Physical Exam Other/Comments: Vital Signs - 24 hr 06/25/22 06/25/22 06/25/22 15:20 15:23 17:23 Temperature 36.5 C 36.5 C 36.5 C Heart Rate 84 84 70 Heart Rate [ Brachial] Heart Rate [ Radial] Respiratory 16 16 16 Rate Blood Pressure 140/70 H 140/70 H 105/85 H Blood Pressure [Right Brachial artery] O2 Saturation 93 93 94 O2 Saturation [ With Activity] 06/25/22 06/25/22 06/25/22 18:21 20:58 23:58 Temperature 37.6 C 36.7 C Heart Rate Heart Rate [ Brachial] Heart Rate [ 72 67 Radial] Respiratory 20 20 16 Rate Blood Pressure Blood Pressure 101/52 L 129/48 L 151/67 H [Right Brachial artery] O2 Saturation 94 97 93 O2 Saturation [ With Activity] 06/26/22 06/26/22 06/26/22 03:52 08:04 11:24 Temperature 37.1 C Heart Rate Heart Rate [ 76 76 73 Brachial] Heart Rate [ Radial] Respiratory 16 17 18 Rate Blood Pressure Blood Pressure 154/67 H 153/68 H 141/58 H [Right Brachial artery] O2 Saturation 96 92 95 O2 Saturation [ With Activity] 06/26/22 11:30 Temperature Heart Rate Heart Rate [ Brachial] Heart Rate [ Radial] Respiratory Rate Blood Pressure Blood Pressure [Right Brachial artery] O2 Saturation O2 Saturation [ 97 With Activity] Oxygen O2 Source [With Activity] Room air O2 Source Room air - LABS Result Diagrams: 06/26/22 07:33 06/26/22 07:33 - DIAGNOSTIC IMAGING Diagnostic Imaging Results: Final report reviewed - FOLLOW UP Follow Up: She was asked to follow-up with her primary care physician 1 to 2 weeks and to follow-up with her ENT physician at the end of the month. She was instructed to return to the emergency department if she develops any weakness or concern for stroke. - TIME SPENT Time Spent in Discharge (Minutes): 33"
[2022-06-26 11:27] VITALS: BP 141/58
[2022-06-26] MEDS ORDERED: atenoloL 25 MG TABLET PO SCH (11:30)
--- NOTE | 2022-06-26 12:12 | MRI Report ---
PROCEDURE: Brain W/O INDICATIONS: Neuro deficit. Suspect stroke. TECHNIQUE: Noncontrast axial T1 spin echo, axial T2 fast spin echo, sagittal and axial FLAIR, coronal T2 fast sp in echo, axial gradient echo, axial diffusion and ADC through the brain. COMPARISON: Prior brain MRI, 12/10/2018. Correlation is also made with head CT angiogram, 06/25/2022 FINDINGS: Image quality: Excellent. CSF Spaces: Basal cisterns are patent. No extra-axial fluid collections. Ventricles are normal in size and shape. Brain: No intracranial masses or hemorrhage. [place]/white matter interface is normal. Brainstem appe ars normal. Diffusion-weighted images demonstrate no acute ischemic insult. No chronic ischemic ins ults. Normal intravascular flow voids are present. Age-appropriate brain parenchymal volume loss an d chronic small vessel ischemic change can be seen. Skull and face: Calvarium has normal marrow signal. Orbits appear normal. Incidental note is made of bilateral lens replacements. Sinuses: There is near complete opacification of the left maxillary sinus at least moderate mucosal t hickening within the right maxillary sinus. Moderate mucosal thickening seen within the left anterior ethmoid air cells and there is complete opacification of the left frontal sinus. No significant abno rmal fluid can be seen within the mastoid air cells. IMPRESSION: No findings of acute or subacute infarction are seen. Relatively prominent paranasal sinus disease is seen, left worse than right. Reviewed by: George Rosado MD on 06/26/2022 12:10 PM PDT Approved by: George Rosado MD on 06/26/2022 12:10 PM PDT Station ID: [id number]
[2022-06-27] MEDS ORDERED: CLOPIDOGREL 75 MG TABLET PO SCH (09:00)
== END 2022-06-26 14:35 | disposition home health service (06) ==
LOC: EDUNIT# → ED 15:14 → MS2 17:08
PROVIDERS: ADMIT Specialist; ATTEND Internal Medicine
DX: R29.810 Facial weakness (principal); R29.898 Other symptoms and signs involving the musculoskeletal system; J32.9 Chronic sinusitis, unspecified; I10 Essential (primary) hypertension; M16.0 Bilateral primary osteoarthritis of hip; M19.90 Unspecified osteoarthritis, unspecified site; Z87.891 Personal history of nicotine dependence; Z20.822 Contact with and (suspected) exposure to COVID-19; G89.4 Chronic pain syndrome
CPT/HCPCS: 36415; 70496; 70498; 70551; 80048; 80053; 80061; 83036; 85025; 85610; 87633; 93005; 93306; 96372; 97162; 99284; 99285; A9270; G0378; J1650; Q9967; 83721

== ENCOUNTER 2022-09-10 11:00 | Outpatient (CLI) | payer MEDICARE, OTHER ==
--- NOTE | 2022-09-10 16:13 | CT Report ---
PROCEDURE: SINUS SCREENING WO INDICATIONS: CHRONIC PANSINUSITIS TECHNIQUE: Noncontrast 3.0 mm axial images acquired from the frontal sinuses to the mid-sella, with coronal and sagittal reformats. For radiation dose reduction, the following was used: automated exposure control , adjustment of mA and/or kV according to patient size. COMPARISON: None. FINDINGS: Severe mucosal thickening with frothy air-fluid levels noted in the maxillary sinuses bilaterally. Se ron mucosal thickening noted in the anterior left ethmoid air cells. Severe mucosal thickening in th e left frontal sinus. Mild mucosal thickening in the left sphenoid sinus. The ostiomeatal units are o pacified bilaterally. No osseous thickening, osseous remodeling or osseous erosive changes. Nasal sep scott is mildly deviated to the left. No grady bullosa or paradoxical turbinates. IMPRESSION: Acute superimposed upon severe chronic bilateral maxillary sinusitis. Severe chronic anterior left ethmoid air cell and left frontal sinusitis. Mild chronic left sphenoid sinusitis. Reviewed by: Mala Juarez MD, PhD on 09/10/2022 4:12 PM PDT Approved by: Mala Juarez MD, PhD on 09/10/2022 4:12 PM PDT Station ID: [id number]
== END 2022-09-10 11:01 | disposition home or self-care (01) ==
LOC: DI 11:00
PROVIDERS: ATTEND Otolaryngology
DX: J01.00 Acute maxillary sinusitis, unspecified (principal); J32.0 Chronic maxillary sinusitis; J32.1 Chronic frontal sinusitis; J32.3 Chronic sphenoidal sinusitis

== ENCOUNTER 2022-09-17 11:39 | Outpatient (CLI) | payer MEDICARE, OTHER ==
[2022-09-17 17:44] LABS: BASOPHILS % (AUTO) 0.5 %; EOSINOPHILS # (AUTO) 0.1 10^3/uL (0.0-0.7); EOSINOPHILS % (AUTO) 0.8 %; HCT - HEMATOCRIT 42.5 % (37.0-47.0); HGB - HEMOGLOBIN 13.4 g/dL (12.0-16.0); LYMPHOCYTES % (AUTO) 12.8 %; MEAN CORPUSCULAR HEMOGLOBIN 32.9 pg (27.0-31.0); MEAN CORPUSCULAR HGB CONC 31.5 g/dL (32.0-36.0); MEAN CORPUSCULAR VOLUME 104.4 fL (81.0-99.0); MEAN PLATELET VOLUME 11.1 fL (7.9-10.8); MONOCYTES # (AUTO) 0.6 10^3/uL (0.0-1.0); MONOCYTES % (AUTO) 8.1 %; NEUTROPHILS # (AUTO) 5.9 10^3/uL (1.5-6.6); NEUTROPHILS % (AUTO) 77.4 %; PLT - PLATELET COUNT 316 10^3/uL (130-450); RED BLOOD COUNT 4.07 10^6/uL (4.20-5.40); RED CELL DISTRIBUTION WIDTH 13.3 % (12.0-15.0); WHITE BLOOD COUNT 7.6 x10^3/uL (4.8-10.8)
== END 2022-09-17 11:40 | disposition home or self-care (01) ==
LOC: LAB.N 11:39
PROVIDERS: ATTEND Nurse Practitioner Family
DX: J32.9 Chronic sinusitis, unspecified (principal); D72.829 Elevated white blood cell count, unspecified
CPT/HCPCS: 36415; 85025

== ENCOUNTER 2022-10-13 11:14 | Outpatient (CLI) | payer MEDICARE, OTHER | END 2022-10-13 11:15 | disposition EMS.NT | LOC: EMS 11:14 | DX: Z03.89 Encounter for observation for other suspected diseases and conditions ruled out (principal) ==

== ENCOUNTER 2022-10-13 12:17 | Emergency (ER) | payer MEDICARE, OTHER ==
--- NOTE | 2022-10-13 14:25 | XRAY Report ---
PROCEDURE: Hip w/Pelvis 2-3V RT INDICATIONS: Fall, hip pain TECHNIQUE: AP pelvis with lateral view(s) of the left hip(s). COMPARISON: None. FINDINGS: Bones: No fractures or dislocations. Pelvic ring appears intact. No suspicious bony lesions. Gener alized decreased osseous mineralization present. Soft tissues: The visualized bowel gas pattern is normal. No suspicious soft tissue calcifications. IMPRESSION: Osteopenia without fracture Reviewed by: Edenilson Fonseca MD on 10/13/2022 1:23 PM [place] Approved by: Edenilson Fonseca MD on 10/13/2022 1:23 PM [place] Station ID: [id number]
[2022-10-13] MEDS ORDERED: oxyCODONE 5 MG TABLET PO STA (15:10)
--- NOTE | 2022-10-13 15:15 | ED Physician Documentation ---
History of Present Illness - Stated complaint Stated Complaint: DIFF WALKING S/P FALL OUT OF BED - Chief complaint Chief Complaint: Trauma Ext - History obtained from History obtained from: Patient, Family - History of Present Illness Timing: Last night Pain level max: 8 Pain level now: 4 - Additonal information Additional information: Patient is an 82-year-old female who is brought in by family today after a fall last night. She fell out of bed and landed on the right hip. Complains of hip pain. She took her usual hydrocodone without relief. Worse with walking, better with rest. No deformity. Family brought in by private auto. No head injury. No neck or back pain. No other injuries. Patient states she has chronic bilateral leg pain that is unchanged. Review of Systems Ten Systems: 10 systems reviewed and negative Constitutional: denies: Fever, Chills Ears: denies: Ear pain Cardiac: denies: Chest pain / pressure, Palpitations Respiratory: denies: Dyspnea, Cough GI: denies: Vomiting, Diarrhea Skin: denies: Rash Musculoskeletal: denies: Neck pain, Back pain Neurologic: denies: Focal weakness, Numbness, Confused, Headache PD PAST MEDICAL HISTORY - Past Medical History Past Medical History: Yes Cardiovascular: Hypertension Respiratory: Pneumonia, Other Neuro: Migraines Endocrine/Autoimmune: None GI: Ulcers, Other : Incontinence Psych: Depression, Anxiety Musculoskeletal: Osteoarthritis, Fibromyalgia, Osteopenia, Fatigue, Chronic back pain, Other Derm: None - Past Surgical History General: Appendectomy, Bowel surgery /[employer]: Tubal ligation HEENT: Cataracts Derm: Skin cancer surgery - Present Medications Home Medications: Ambulatory Orders Medication Instructions Recorded Confirmed Cyclobenzaprine [Flexeril] 10 mg PO TID PRN 06/30/20 10/13/22 Gabapentin 200 mg PO TID 06/30/20 10/13/22 SUMAtriptan [Imitrex] 25 mg PO ONCE PRN 06/30/20 10/13/22 Sertraline HCl [Zoloft] 150 mg PO DAILY 06/30/20 10/13/22 Sucralfate [Carafate] 1 gm PO TIDWM 06/30/20 10/13/22 Zolpidem Tartrate [Ambien] 10 mg PO QPM PRN MDD 1 06/30/20 10/13/22 atenoloL [Atenolol] 100 mg PO DAILY 06/30/20 10/13/22 busPIRone [Buspar] 25 mg PO BID 06/30/20 10/13/22 Baclofen [Lioresal] 10 mg PO UD PRN MDD 5 06/26/22 10/13/22 Hydrocodone/Acetaminophen 1 tab PO Q4H PRN 06/26/22 10/13/22 [Hydrocodone-Acetamin 7.5-300] Losartan [Cozaar] 50 mg PO DAILY 06/26/22 10/13/22 Methadone [Methadone Hcl] 5 mg PO TID 06/26/22 10/13/22 Amlodipine Besylate [Norvasc] 2.5 mg PO DAILY 10/13/22 10/13/22 Butalb/Acetam/Caff 50/325/40 1 each PO BID PRN 10/13/22 10/13/22 [Fioricet] Fluticasone [Flonase] 1 sprays SU DAILY PRN 10/13/22 10/13/22 Oxycodone HCl/Acetaminophen 1 - 2 each PO Q6H PRN #14 tablet 10/13/22 [Percocet 5-325 mg Tablet] MDD 6 tabs hydrOXYzine pamoate [Hydroxyzine 25 mg PO TID PRN 10/13/22 10/13/22 Pamoate] modafiniL [Modafinil] 100 mg ORAL DAILY PRN 10/13/22 10/13/22 - Allergies Allergies/Adverse Reactions: Allergies Allergy/AdvReac Type Severity Reaction Status Date / Time epinephrine Allergy Anxiety Verified 10/13/22 13:25 Sulfa (Sulfonamide Allergy Hives Verified 10/13/22 13:25 Antibiotics) - Social History Does the pt smoke?: No Smoking Status: Never smoker Does the pt drink ETOH?: No PD ED PE NORMAL - Vitals Vital signs reviewed: Yes - General General: Alert and oriented X 3, No acute distress, Well developed/nourished - HEENT HEENT: Atraumatic (No hematomas. No palpable skull fractures.), PERRL, Moist mucous membranes - Neck Neck: Supple, no meningeal sign, No bony TTP - Cardiac Cardiac: RRR, Strong equal pulses - Respiratory Respiratory: No respiratory distress, Clear bilaterally - Abdomen Abdomen: Soft, Non tender, Non distended - Back Back: No spinal TTP - Derm Derm: Warm and dry - Extremities Extremities: No edema, No calf tenderness / cord, Other (Mild tenderness p alpation over the right hip. Mild pain with internal and external rotation. No pain with flexion of the hip. 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, No motor deficit, No sensory deficit, Normal speech Eye Opening: Spontaneous Motor: Obeys Commands Verbal: Oriented GCS Score: 15 - Psych Psych: Normal mood, Normal affect Results - Vitals Vitals: Vital Signs - 24 hr 10/13/22 10/13/22 10/13/22 13:19 15:01 16:13 Temperature 36.3 C L 35.9 C L Heart Rate 71 63 62 Respiratory 16 16 16 Rate Blood Pressure 95/66 119/80 115/56 L O2 Saturation 97 95 96 Oxygen O2 Source [] Room air O2 Source Room air - Rads (name of study) Right hip x-ray Radiology: Final report received, EMP read contemporaneously, See rad report (Osteopenia without acute fracture) Right hip CT Radiology: Final report received, EMP read contemporaneously, See rad report PD MEDICAL DECISION MAKING - ED course Complexity details: reviewed results, re-evaluated patient, considered differential, d/w patient, d/w family ED course: 82-year-old female status post a fall out of bed last night. Landed on the right hip. No acute findings on x-ray. Was still having pain with ambulation with a walker. CT was performed. No fracture. Patient is ambulating quite well with a walker after pain medication. We will prescribe pain medication for home. Her family will stay with her. No head, neck, back pain. No headaches. No head injury. No indication for head or neck CT. Patient and family counseled regarding signs and symptoms for which I believe and urgent re- evaluation would be necessary. Patient with good understanding of and agreement to plan and is comfortable going home at this time This document was made in part using voice recognition software. While efforts are made to proofread this document, sound alike and grammatical errors may occur. Departure - Departure Disposition: 01 Home, Self Care Clinical Impression: Hip pain Fall Qualifiers: Encounter type: initial encounter Qualified Code(s): W19.XXXA - Unspecified fall, initial encounter Condition: Good Instructions: ED Contusion Hip Follow-Up: Claritza Logan ARNP [Primary Care Provider] - Within 1 week Prescriptions: Oxycodone HCl/Acetaminophen [Percocet 5-325 mg Tablet] 1 - 2 each PO Q6H PRN #14 tablet MDD 6 tabs PRN Reason: pain Comments: We will increase your pain medicine for home for the next few days. Follow up with your doctor for further care. You can discuss with your doctor possible placement options and assisted living facilities. Your prescriptions were sent to [facility] in [place]. I am prescribing a short course of narcotic pain medication for you. These are potentially dangerous and addictive medications that should be used carefully. These medications may constipate you. Take an [id number]-[id number] stool softener (docusate) twice daily with plenty of water while taking these medications. If you go 24 hours without a bowel movement, take [id number] miralax, per package instructions. Do not drink or drive while taking these medications. If you received narcotic or sedating medications while in the emergency department, do not drive for 24 hours. Store this medication in a safe, secure place and out of reach of children. It is a violation of federal law to give or sell this medication to another person or to use in a manner other than prescribed. The ED will not refill narcotic prescriptions, including prescriptions lost or stolen. To dispose of unwanted medications: 1. [facility] [address] [facility] [address] in [place] has a medication drop box. They accept prescription medications (in pill form) Friday through Friday 9:00 a.m. to 5:00 p.m. 2. The [facility] [employer] accepts prescription medications (in pill form only) for disposal year round. Call for more information. 3. Contact the [facility] for the next [facility] sponsored prescription drug collection event. , [phone], or [phone]; Discharge Date/Time: 10/13/22 16:40
--- NOTE | 2022-10-13 16:07 | CT Report ---
PROCEDURE: LOWER EXTREMITY WO - RT INDICATIONS: R hip pain s/p fall TECHNIQUE: Noncontrast 3-mm axial sections acquired from the distal tibial shaft to the talar dome, with coronal and sagittal reformats. For radiation dose reduction, the following was used: automated exposure c ontrol, adjustment of mA and/or kV according to patient size. COMPARISON: None. FINDINGS: Image quality: Excellent. Moderate hip joint space narrowing without marginal osteophyte present. There is no fracture in the p roximal femur, right hemipelvis, sacrum and coccyx.. Degenerative changes noted in the lower lumbar s pine, partially imaged Soft tissues unremarkable. Moderate fecal bolus noted in the rectum. No radiopaque foreign body. Impression: No evidence of right hip or right hemipelvis fracture. Lower lumbar spine degenerative changes Reviewed by: Edenilson Fonseca MD on 10/13/2022 3:05 PM [place] Approved by: Edenilson Fonseca MD on 10/13/2022 3:05 PM [place] Station ID: [id number]
[2022-10-13 16:14] VITALS: BP 115/56
== END 2022-10-13 16:40 | disposition home or self-care (01) ==
LOC: ED 12:17
DX: M25.551 Pain in right hip (principal); W06.XXXA Fall from bed, initial encounter
CPT/HCPCS: 73502; 73700; 99282; 99284; A9270

== ENCOUNTER 2022-10-29 15:21 | Outpatient (CLI) | payer MEDICARE, OTHER ==
[2022-10-29 18:10] LABS: BASOPHILS # (AUTO) 0.1 10^3/uL (0.0-0.1); BASOPHILS % (AUTO) 0.7 %; EOSINOPHILS # (AUTO) 0.1 10^3/uL (0.0-0.7); HCT - HEMATOCRIT 41.1 % (37.0-47.0); HGB - HEMOGLOBIN 12.8 g/dL (12.0-16.0); LYMPHOCYTES # (AUTO) 1.1 10^3/uL (1.5-3.5); LYMPHOCYTES % (AUTO) 14.6 %; MEAN CORPUSCULAR HEMOGLOBIN 32.6 pg (27.0-31.0); MEAN CORPUSCULAR HGB CONC 31.1 g/dL (32.0-36.0); MEAN CORPUSCULAR VOLUME 104.6 fL (81.0-99.0); MEAN PLATELET VOLUME 10.5 fL (7.9-10.8); MONOCYTES # (AUTO) 0.6 10^3/uL (0.0-1.0); MONOCYTES % (AUTO) 8.5 %; NEUTROPHILS # (AUTO) 5.4 10^3/uL (1.5-6.6); NEUTROPHILS % (AUTO) 74.9 %; PLT - PLATELET COUNT 481 10^3/uL (130-450); RED BLOOD COUNT 3.93 10^6/uL (4.20-5.40); RED CELL DISTRIBUTION WIDTH 13.2 % (12.0-15.0); WHITE BLOOD COUNT 7.2 x10^3/uL (4.8-10.8)
== END 2022-10-29 15:22 | disposition home or self-care (01) ==
LOC: LAB.N 15:21
PROVIDERS: ATTEND Nurse Practitioner Family
DX: D53.9 Nutritional anemia, unspecified (principal)
CPT/HCPCS: 36415; 82607; 82746; 85025

== ENCOUNTER 2022-12-05 15:43 | Outpatient (CLI) | payer MEDICARE, OTHER, MEDICAID | END 2022-12-05 15:44 | disposition critical access hospital (66) | LOC: EMS 15:43 | DX: R53.83 Other fatigue (principal); R27.9 Unspecified lack of coordination | CPT/HCPCS: A0425; A0429 ==

== ENCOUNTER 2022-12-05 15:49 | Emergency (ER) | payer MEDICARE, OTHER, MEDICAID ==
[2022-12-05] MEDS ORDERED: SODIUM CHLORIDE 0.9% 1,000 ML IV STA ×2 (16:12→17:06)
--- NOTE | 2022-12-05 16:17 | ED Physician Documentation ---
History of Present Illness - Stated complaint Stated Complaint: WEAKNESS - History obtained from History obtained from: Patient, EMS - Additonal information Additional information: Pt is brought to the ED for CC of generalized weakness that has been going on on and off for the past couple of months, but seemed worse today. Pt was noted to have more difficulty than usual, signing her name at her doctors office, and caregiver decided the pt needed an evaluation. No focal deficits. Pt states she has been very tired today after staying up very late last night. She states she usually goes to bed around 2100, but last night, became preoccupied with some other things she was doing, and ended up staying up until around [id number]. She states that she lost her balance yesterday evening and stumbled back against some cabinets, but did not hit her head. She was able to get back up, and has been ambulatory on her own since. The pt does admit to not drinking much water, though she has not been ill with anything. Pt denies, ELAM, fever, chills, dysuria, N/V/D, cough, SOB, or CP. She states right now, she just wants to get some sleep. Review of Systems Constitutional: reports: Reviewed and negative Eyes: reports: Reviewed and negative Ears: reports: Reviewed and negative Nose: reports: Reviewed and negative Throat: reports: Reviewed and negative Cardiac: reports: Reviewed and negative Respiratory: reports: Reviewed and negative GI: reports: Reviewed and negative : reports: Reviewed and negative Skin: reports: Reviewed and negative Musculoskeletal: reports: Reviewed and negative Neurologic: reports: Generalized weakness, Reviewed and negative Psychiatric: reports: Reviewed and negative Endocrine: reports: Reviewed and negative Immunocompromised: reports: Reviewed and negative PD PAST MEDICAL HISTORY - Past Medical History Cardiovascular: Hypertension Respiratory: Pneumonia, Other Neuro: Migraines Endocrine/Autoimmune: None GI: Ulcers, Other : Incontinence Psych: Depression, Anxiety Musculoskeletal: Osteoarthritis, Fibromyalgia, Osteopenia, Fatigue, Chronic back pain, Other Derm: None - Past Surgical History General: Appendectomy, 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 HEENT: Cataracts Derm: Skin cancer surgery - Present Medications Home Medications: Ambulatory Orders Medication Instructions Recorded Confirmed Cyclobenzaprine [Flexeril] 10 mg PO TID PRN 06/30/20 10/13/22 Gabapentin 200 mg PO TID 06/30/20 10/13/22 SUMAtriptan [Imitrex] 25 mg PO ONCE PRN 06/30/20 10/13/22 Sertraline HCl [Zoloft] 150 mg PO DAILY 06/30/20 10/13/22 Sucralfate [Carafate] 1 gm PO TIDWM 06/30/20 10/13/22 Zolpidem Tartrate [Ambien] 10 mg PO QPM PRN MDD 1 06/30/20 10/13/22 atenoloL [Atenolol] 100 mg PO DAILY 06/30/20 10/13/22 busPIRone [Buspar] 25 mg PO BID 06/30/20 10/13/22 Baclofen [Lioresal] 10 mg PO UD PRN MDD 5 06/26/22 10/13/22 Hydrocodone/Acetaminophen 1 tab PO Q4H PRN 06/26/22 10/13/22 [Hydrocodone-Acetamin 7.5-300] Losartan [Cozaar] 50 mg PO DAILY 06/26/22 10/13/22 Methadone [Methadone Hcl] 5 mg PO TID 06/26/22 10/13/22 Amlodipine Besylate [Norvasc] 2.5 mg PO DAILY 10/13/22 10/13/22 Butalb/Acetam/Caff 50/325/40 1 each PO BID PRN 10/13/22 10/13/22 [Fioricet] Fluticasone [Flonase] 1 sprays SU DAILY PRN 10/13/22 10/13/22 hydrOXYzine pamoate [Hydroxyzine 25 mg PO TID PRN 10/13/22 10/13/22 Pamoate] modafiniL [Modafinil] 100 mg ORAL DAILY PRN 10/13/22 10/13/22 cephALEXin [Keflex] 500 mg PO Q6H #28 cap 12/05/22 clindamycin HCL [Cleocin HCl] 450 mg PO TID 5 Days #40 cap 12/07/22 - Allergies Allergies/Adverse Reactions: Allergies Allergy/AdvReac Type Severity Reaction Status Date / Time epinephrine Allergy Anxiety Verified 10/13/22 13:25 Sulfa (Sulfonamide Allergy Hives Verified 10/13/22 13:25 Antibiotics) - Social History Does the pt smoke?: No Smoking Status: Never smoker Does the pt drink ETOH?: No PD ED PE NORMAL - Vitals Vital signs reviewed: Yes - General General: Alert and oriented X 3, No acute distress, Other (Pt appears tired, but answers questions briskly.) - HEENT HEENT: Atraumatic, PERRL, EOMI, Moist mucous membranes - Neck Neck: Supple, no meningeal sign, No bony TTP - Cardiac Cardiac: RRR, No murmur, Strong equal pulses - Respiratory Respiratory: No respiratory distress, Clear bilaterally - Abdomen Abdomen: Soft, Non tender, Non distended - Back Back: No spinal TTP - Derm Derm: Normal color, Warm and dry, No rash - Extremities Extremities: No deformity, No tenderness to palpate, Normal ROM s pain, No edema - Neuro Neuro: Alert and oriented X 3, 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 Aureus Laboratory Tests 12/05/22 12/05/22 12/05/22 16:21 16:21 18:51 WBC 6.8 RBC 3.45 L Hgb 11.6 L Hct 37.2 MCV 107.8 H MCH 33.6 H MCHC 31.2 L RDW 14.3 Plt Count 294 MPV 9.8 Neut # (Auto) 5.5 Lymph # (Auto) 0.8 L [place] # (Auto) 0.5 Eos # (Auto) 0.0 Baso # (Auto) 0.0 Absolute Nucleated RBC 0.00 Nucleated RBC % 0.0 VBG pH VBG pCO2 VBG pO2 VBG HCO3 VBG Total CO2 VBG O2 Saturation VBG Base Excess Sodium 143 Potassium 3.9 Chloride 107 Carbon Dioxide 29 Anion Gap 7.0 BUN 43 H Creatinine 0.8 Estimated GFR (MDRD) 69 L Glucose 91 Lactic Acid Calcium 8.3 L Total Bilirubin 0.4 AST 30 ALT 27 Alkaline Phosphatase 97 Total Protein 5.3 L Albumin 2.4 L Globulin 2.9 Albumin/Globulin Ratio 0.8 L Prealbumin 17 L Lipase 33 TSH Free T4 Free T3 pg/mL Nasal Adenovirus (PCR) Nasal B. parapertussis DNA (PCR) Nasal Coronavir 229E PCR Nasal Coronavir HKU1 PCR Nasal Coronavir NL63 PCR Nasal Coronavir OC43 PCR Nasal Enterovir/Rhinovir PCR Nasal Influenza B PCR Nasal Influenza A PCR Nasal Parainfluen 1 PCR Nasal Parainfluen 2 PCR Nasal Parainfluen 3 PCR Nasal Parainfluen 4 PCR Nasal RSV (PCR) Nasal B.pertussis DNA PCR Nasal C.pneumoniae (PCR) Su Human Metapneumo PCR Nasal M.pneumoniae (PCR) Nasal SARS-CoV-2 (PCR) 12/05/22 12/05/22 12/05/22 18:51 18:51 18:52 WBC RBC Hgb Hct MCV MCH MCHC RDW Plt Count MPV Neut # (Auto) Lymph # (Auto) [place] # (Auto) Eos # (Auto) Baso # (Auto) Absolute Nucleated RBC Nucleated RBC % VBG pH 7.300 L VBG pCO2 53.1 H VBG pO2 32.8 VBG HCO3 25.5 VBG Total CO2 27.2 VBG O2 Saturation 58.5 L VBG Base Excess -1.4 Sodium Potassium Chloride Carbon Dioxide Anion Gap BUN Creatinine Estimated GFR (MDRD) Glucose Lactic Acid Calcium Total Bilirubin AST ALT Alkaline Phosphatase Total Protein Albumin Globulin Albumin/Globulin Ratio Prealbumin Lipase TSH 5.60 Free T4 0.74 Free T3 pg/mL 2.35 L Nasal Adenovirus (PCR) NOT DETECTED Nasal B. parapertussis DNA (PCR) NOT DETECTED Nasal Coronavir 229E PCR NOT DETECTED Nasal Coronavir HKU1 PCR NOT DETECTED Nasal Coronavir NL63 PCR NOT DETECTED Nasal Coronavir OC43 PCR NOT DETECTED Nasal Enterovir/Rhinovir PCR NOT DETECTED Nasal Influenza B PCR NOT DETECTED Nasal Influenza A PCR NOT DETECTED Nasal Parainfluen 1 PCR NOT DETECTED Nasal Parainfluen 2 PCR NOT DETECTED Nasal Parainfluen 3 PCR NOT DETECTED Nasal Parainfluen 4 PCR NOT DETECTED Nasal RSV (PCR) NOT DETECTED Nasal B.pertussis DNA PCR NOT DETECTED Nasal C.pneumoniae (PCR) NOT DETECTED Su Human Metapneumo PCR NOT DETECTED Nasal M.pneumoniae (PCR) NOT DETECTED Nasal SARS-CoV-2 (PCR) NOT DETECTED 12/05/22 19:09 WBC RBC Hgb Hct MCV MCH MCHC RDW Plt Count MPV Neut # (Auto) Lymph # (Auto) [place] # (Auto) Eos # (Auto) Baso # (Auto) Absolute Nucleated RBC Nucleated RBC % VBG pH VBG pCO2 VBG pO2 VBG HCO3 VBG Total CO2 VBG O2 Saturation VBG Base Excess Sodium Potassium Chloride Carbon Dioxide Anion Gap BUN Creatinine Estimated GFR (MDRD) Glucose Lactic Acid 1.7 Calcium Total Bilirubin AST ALT Alkaline Phosphatase Total Protein Albumin Globulin Albumin/Globulin Ratio Prealbumin Lipase TSH Free T4 Free T3 pg/mL Nasal Adenovirus (PCR) Nasal B. parapertussis DNA (PCR) Nasal Coronavir 229E PCR Nasal Coronavir HKU1 PCR Nasal Coronavir NL63 PCR Nasal Coronavir OC43 PCR Nasal Enterovir/Rhinovir PCR Nasal Influenza B PCR Nasal Influenza A PCR Nasal Parainfluen 1 PCR Nasal Parainfluen 2 PCR Nasal Parainfluen 3 PCR Nasal Parainfluen 4 PCR Nasal RSV (PCR) Nasal B.pertussis DNA PCR Nasal C.pneumoniae (PCR) Su Human Metapneumo PCR Nasal M.pneumoniae (PCR) Nasal SARS-CoV-2 (PCR) - Rads (name of study) CT head Radiology: Final report received, See rad report (nad; sinus disease) L foot XR Radiology: Final report received, See rad report (neg) PD Medical Decision Making - ED course Complexity details: reviewed results, re-evaluated patient, considered differential, d/w patient ED course: The pt seemed tired, but was appropriate, and had no traumatic complaints. She seemed to have chronic generalized weakness, which was worse today. I also suspected dehydration, considering the pt had not been drinking much water. The pt was given a total of 2 liters of NS. She was worked up with CT head and XR L foot (after reporting some L foot pain after the fall), both of which were ordered and reviewed by me, and found to be unremarkable. CBC and ER abdominal panel were also ordered and reviewed by me, and found to be unremarkable, as well. The pt was stable for d/c home. She was able to ambulate without difficulty in the ED, and family was contacted to pick her up. Pt reported feeling better. We have discussed the importance of hydration and the usual indications for return. Departure - Departure Disposition: 01 Home, Self Care Clinical Impression: Dehydration Condition: Stable Instructions: ED Dehydration Prescriptions: clindamycin HCL [Cleocin HCl] 450 mg PO TID 5 Days #40 cap cephALEXin [Keflex] 500 mg PO Q6H #28 cap Comments: I sent your prescription electronically to [facility] in [place]. You were up extremely late last night, 5 to 6 hours later than you usually are, and this is most likely in part the reason for your fatigue today. However, you were also significantly dehydrated and it is very important that you drink more fluids. You have been given 2 L of IV fluid in the emergency department and this should be helpful. Your head CT and other labs look good. There is no evidence of an emergent condition going on. Please try to take better care of yourself at home by getting to bed early and drinking plenty of water. Follow- up with your primary care physician as needed. Discharge Date/Time: 12/05/22 21:00
[2022-12-05 16:29] LABS: BASOPHILS % (AUTO) 0.3 %; EOSINOPHILS % (AUTO) 0.4 %; HCT - HEMATOCRIT 37.2 % (37.0-47.0); HGB - HEMOGLOBIN 11.6 g/dL (12.0-16.0); LYMPHOCYTES # (AUTO) 0.8 10^3/uL (1.5-3.5); LYMPHOCYTES % (AUTO) 11.7 %; MEAN CORPUSCULAR HEMOGLOBIN 33.6 pg (27.0-31.0); MEAN CORPUSCULAR HGB CONC 31.2 g/dL (32.0-36.0); MEAN CORPUSCULAR VOLUME 107.8 fL (81.0-99.0); MEAN PLATELET VOLUME 9.8 fL (7.9-10.8); MONOCYTES # (AUTO) 0.5 10^3/uL (0.0-1.0); MONOCYTES % (AUTO) 6.9 %; NEUTROPHILS # (AUTO) 5.5 10^3/uL (1.5-6.6); NEUTROPHILS % (AUTO) 80.6 %; PLT - PLATELET COUNT 294 10^3/uL (130-450); RED BLOOD COUNT 3.45 10^6/uL (4.20-5.40); RED CELL DISTRIBUTION WIDTH 14.3 % (12.0-15.0); WHITE BLOOD COUNT 6.8 x10^3/uL (4.8-10.8)
[2022-12-05 16:37] LABS: ALBUMIN 2.4 g/dL (3.2-5.5); ALBUMIN/GLOBULIN RATIO 0.8 (1.0-2.2); BILIRUBIN,TOTAL 0.4 mg/dL (0.2-1.0); CALCIUM 8.3 mg/dL (8.5-10.3); CREATININE 0.8 mg/dL (0.4-1.0); POTASSIUM 3.9 mmol/L (3.5-5.0); TOTAL PROTEIN 5.3 g/dL (6.7-8.2)
--- NOTE | 2022-12-05 16:58 | CT Report ---
PROCEDURE: HEAD WO INDICATIONS: fall/possible head injury TECHNIQUE: Noncontrast 4.5 mm thick angled axial sections acquired from the foramen magnum to the vertex. For r adiation dose reduction, the following was used: automated exposure control, adjustment of mA and/or kV according to patient size. COMPARISON: None. FINDINGS: Image quality: Excellent. CSF spaces: Basal cisterns are patent. No extra-axial fluid collections. Ventricles are normal in size and shape. Brain: No midline shift. No intracranial masses or hemorrhage. [place]-white matter interface is norm al. Skull and face: Calvarium and visualized facial bones are intact, without suspicious lesions. Sinuses: Severe bilateral maxillary sinus opacification. Severe left frontal sinus opacification. Mil d left anterior ethmoid sinus mucosal disease. IMPRESSION: 1. No acute intracranial abnormality. 2. Sinus disease. Reviewed by: Jamaal Apodaca MD on 12/05/2022 4:57 PM PST Approved by: Jamaal Apodaca MD on 12/05/2022 4:57 PM PST Station ID: [id number]
--- NOTE | 2022-12-05 18:46 | ED Physician Documentation ---
ED Addendum - Addendum Addendum: 12/05/22 18:[address] Buck at 645. 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 She has bilateral foot infections, she has altered mental status and cannot walk. She has been losing weight and now has a BMI of 17. Frequent and increasing falls and hit her head last night but with a reportedly normal CT head. I saw the patient at bedside. She has a significant encephalopathy. Very hard to arouse. Basically needs vigorous stimulation to even get her to say her name and follow very simple commands and immediately falls back to sleep. She has a purulent wound over the left second distal phalanx. We will culture that, x-ray both feet, add on a prealbumin and venous blood gas. 12/05/22 20:25 Review of above diagnostics demonstrate that her blood gas shows a mild acidosis with a venous pH of 7.30, prealbumin is low at 17, no significant findings of lactic acidosis or abnormal thyroid function. X-rays of both feet do not demonstrate osteomyelitis. Patient became much more awake and conversant and ambulated without significant assistance up to the toilet. Daughter okay taking her home, I will email the social media developer correctional case records supervisor tomorrow to see if she can help facilitate SNF placement which she probably needs that discussed with daughter that if the patient does not have resources, which she does not, she will probably need to apply for Medicaid and she voices understanding. Disposition: Discharged home condition: Stable In addition to Dr. Buck's diagnoses: 1. Cellulitis left second toe 2. Malnutrition I wrote a prescription for 500 mg Keflex p.o. 4 times daily for 7 days.
[2022-12-05 18:57] LABS: VBG PH 7.3 (7.31-7.41)
[2022-12-05 18:58] LABS: VBG BASE EXCESS -1.4 mmol/L (-2 - +2); VBG HCO3 25.5 mmol/L (23-28); VBG OXYGEN SATURATION 58.5 % (60-80); VBG PCO2 53.1 mmHg (41-51); VBG PO2 32.8 mmHg (25-47); VBG TOTAL CO2 27.2 mmol/L (24-29)
[2022-12-05 19:27] LABS: THYROID STIMULATING HORMONE 5.6 uIU/mL (0.34-5.60)
[2022-12-05 19:29] LABS: FREE T3 2.35 pg/mL (2.5-3.9)
[2022-12-05 19:30] LABS: FREE T4 (FREE THYROXINE) 0.74 ng/dL (0.58-1.64)
[2022-12-05 19:49] LABS: B. PARAPERTUSSIS- RESP PCR PAN NOT DETECTED; B. PERTUSSIS- RESP PCR PANEL NOT DETECTED; C. PNEUMONIAE- RESP PCR PANEL NOT DETECTED; CORONAVIRUS 229E-RESP PCR NOT DETECTED; CORONAVIRUS HKU1-RESP PCR NOT DETECTED; CORONAVIRUS NL63-RESP PCR NOT DETECTED; CORONAVIRUS OC43-RESP PCR NOT DETECTED; HUMAN METAPNEUMOVIRUS NOT DETECTED; INFLUENZA A- RESP PCR PANEL NOT DETECTED; INFLUENZA B - RESP PCR PANEL NOT DETECTED; M. PNEUMONIAE- RESP PCR PANEL NOT DETECTED; PARAINFLUENZA VIRUS 1 NOT DETECTED; PARAINFLUENZA VIRUS 2 NOT DETECTED; PARAINFLUENZA VIRUS 3 NOT DETECTED; PARAINFLUENZA VIRUS 4 NOT DETECTED; RHINOVIRUS/ENTEROVIRUS NOT DETECTED; RSV- RESP PCR PANEL NOT DETECTED; SARS-CoV-2 -RESP PCR PANEL NOT DETECTED
--- NOTE | 2022-12-05 20:13 | XRAY Report ---
PROCEDURE: Foot 3 View BILAT INDICATIONS: foot infections staci l 2nd toe TECHNIQUE: 3 views of the foot were acquired. COMPARISON: None FINDINGS: Bones: Right foot: No acute fracture or dislocation. Degenerative changes of the first metatarsophala ngeal joint. No suspicious osseous erosions. No suspicious periosteal reaction. Left foot: Postsurgical changes of arthrodesis of the first metatarsophalangeal joint. No evidence fo r hardware application. Background degenerative changes. No acute fracture seen. No suspicious osseou s erosions or periosteal reaction. Soft tissues: Mild soft tissue swelling of the forefoot of the bilateral foot. No evidence for soft t issue gas. IMPRESSION: Bilateral foot without acute fracture or dislocation. Other chronic findings as above Soft tissue swelling of the distal forefoot bilaterally without underlying suspicious osseous erosion s or periosteal reaction. Radiographic abnormalities may not be apparent in the acute phase of osteom yelitis. If there is high clinical concern for osteomyelitis, further evaluation with nonemergent MRI can be c onsidered. Reviewed by: Abhishek Byrne MD on 12/05/2022 8:12 PM PST Approved by: Abhishek Byrne MD on 12/05/2022 8:12 PM PST Station ID: [id number]
[2022-12-05] MEDS ORDERED: cephALEXin 250 MG CAPSULE PO STA (20:24)
[2022-12-05 21:01] VITALS: BP 136/73
--- NOTE | 2022-12-07 22:46 | ED Physician Documentation ---
ED Addendum - Addendum Addendum: 12/07/22 22:41 Patient's wound culture reviewed from visit. Positive for MRSA and Staph aureus. Was discharged on Keflex. Has an allergy to sulfa medications. Culture shows resistance to erythromycin. Will initiate course Cleocin. Prescription sent to preferred pharmacy. Nursing staff will contact in the a.m. to update patient. 12/08/22 04:39
== END 2022-12-05 21:00 | disposition home or self-care (01) ==
LOC: EDUNIT# → ED 15:49
DX: A49.01 Methicillin susceptible Staphylococcus aureus infection, unspecified site (principal); Z16.39 Resistance to other specified antimicrobial drug; E86.0 Dehydration; I10 Essential (primary) hypertension; Z20.822 Contact with and (suspected) exposure to COVID-19
CPT/HCPCS: 36415; 70450; 73630; 80053; 82803; 83605; 83690; 84134; 84439; 84443; 84481; 85025; 87070; 87181; 87205; 87633; 96360; 96361; 99283; 99284; A9270

== ENCOUNTER 2022-12-06 02:55 | Outpatient (CLI) | payer MEDICARE, OTHER, MEDICAID | END 2022-12-06 23:59 | disposition EMS.NT | LOC: EMS 02:55 | DX: Z03.89 Encounter for observation for other suspected diseases and conditions ruled out (principal) ==